=== PATIENT | female | born 1995 | race Caucasian/White ===

== ENCOUNTER 2021-04-06 09:00 | Emergency (ER) | payer SELFPAY ==
[~2021-04-06] VITALS: Ht 165.1 cm; Wt 61.4 kg
[2021-04-06 11:30] VITALS: BP 115/65
== END 2021-04-06 11:30 | disposition home or self-care (01) | DRG 556 ==
LOC: ED 09:00
DX: M79.671 Pain in right foot (principal); W20.8XXA Other cause of strike by thrown, projected or falling object, initial encounter; Y93.89 Activity, other specified; Y92.009 Unspecified place in unspecified non-institutional (private) residence as the place of occurrence of the external cause

== ENCOUNTER 2022-11-28 09:32 | Emergency (ER) | payer OTHER ==
[~2022-11-28] VITALS: Ht 165.1 cm; Wt 63.0 kg
[2022-11-28 11:11] VITALS: BP 115/81
[2022-11-28 11:15] VITALS: BP 111/74
[2022-11-28 11:30] VITALS: BP 101/66
[2022-11-28 11:38] LABS: BASO% 0.3 % (0-3); EOS% 0.4 % (0-8); HEMATOCRIT 41.3 % (37.0-47.0); HEMOGLOBIN 13.7 g/dl (12.0-16.0); IMMATURE GRANULOCYTES 0.4 % (0.0-5.0); LYMPH% 22.3 % (15-41); MEAN CELL VOLUME 92.6 fL CALC (80.0-100.0); MEAN CORPUSCULAR HGB 30.7 pG CALC (26.0-32.0); MEAN CORPUSCULAR HGB CONC 33.2 g/dL CAL (32.0-36.0); MONO% 6.7 % (2-13); NEUT# 6.97 thou/uL (2.00-7.15); NEUT% 69.9 % (42-76); RED BLOOD COUNT 4.46 mill/uL (4.20-5.60); RED CELL DISTRI WIDTH 11.8 % (11.5-15.5)
[2022-11-28 11:39] LABS: URINE BILIRUBIN - DIPSTICK Negative (NEGATIVE); URINE BLOOD DIPSTICK Negative (NEGATIVE); URINE GLUCOSE - DIPSTICK Negative (NEGATIVE); URINE KETONE Negative (NEGATIVE); URINE LEUK ESTERASE Negative (NEGATIVE); URINE NITRITE - DIPSTICK Negative (Negative); URINE PH 5.5 (4.5-8.0); URINE PROTEIN - DIPSTICK Negative (NEG-TRACE); URINE SPECIFIC GRAVITY >=1.030; URINE UROBILINOGEN - DIPSTICK 0.2 E.U./dL (0.2)
[2022-11-28 11:40] LABS: URINE COLOR Yellow
[2022-11-28 11:52] VITALS: BP 111/77
[2022-11-28 11:56] LABS: ALBUMIN 4.4 g/dL (3.2-5.0); ALKALINE PHOSPHATASE 58 u/l (38-126); ANION GAP 13 (6-22 (CALC)); BILIRUBIN, TOTAL 0.8 mg/dL (0.02-1.3); BUN 10 mg/dL (7-17); BUN/CREATININE RATIO 17 (12-20 (CALC)); CARBON DIOXIDE 22 mmol/l (22-30); CHLORIDE 108 mmol/l (95-108); CREATININE 0.6 mg/dL (0.5-1.0); GFR FOR AFR.AMER. > 60 ML/MIN (>=60 (CALC)); GFR OTHER RACES > 60 ML/MIN (>=60 (CALC)); LIPASE 76 u/l (23-300); POTASSIUM 3.9 mmol/l (3.5-5.1); SGOT/AST 27 u/l (14-36); SODIUM 139 mmol/l (137-146); TOTAL PROTEIN 7.6 g/dL (6.3-8.2)
[2022-11-28 12:00] VITALS: BP 106/69
[2022-11-28] MEDS ORDERED: AMOX/K CLAV875 M1 PO (14:33)
[2022-11-28] MEDS ORDERED: PREDNISONE20 MG PO (14:33)
[2022-11-28] MEDS ORDERED: ZOFRAN4 MG/TAB PO (14:33)
[2022-11-28 14:56] VITALS: BP 111/74
== END 2022-11-28 15:01 | disposition home or self-care (01) | DRG 387 ==
LOC: ED 09:32
PROVIDERS: Family Medicine
DX: K51.90 Ulcerative colitis, unspecified, without complications (principal); Z20.822 Contact with and (suspected) exposure to COVID-19
CPT/HCPCS: Q9967

== ENCOUNTER 2023-06-15 08:25 | Emergency (ER) | payer OTHER ==
[~2023-06-15] VITALS: Ht 165.1 cm; Wt 70.3 kg
[2023-06-15] VITALS (7 sets, daily range): BP systolic 87–108; BP diastolic 55–67
[~2023-06-15 08:25] MED LIST: AMOX/K CLAV875 M1 PO; PREDNISONE20 MG PO; ZOFRAN4 MG/TAB PO
[2023-06-15] MEDS ORDERED: SODIUM CHLORIDE 0.9% 1,000 ML IV ONE ×2 (08:50→09:00)
[2023-06-15] MEDS ORDERED: ONDANSETRON HCl 4 MG/2 ML SDV IV ONE ×2 (08:55→09:00)
[2023-06-15 09:07] LABS: BASO% 0.2 % (0-3); EOS% 0.1 % (0-8); HEMATOCRIT 37.9 % (37.0-47.0); HEMOGLOBIN 12.8 g/dl (12.0-16.0); IMMATURE GRANULOCYTES 1.8 % (0.0-5.0); LYMPH% 4.3 % (15-41); MEAN CELL VOLUME 90.2 fL CALC (80.0-100.0); MEAN CORPUSCULAR HGB 30.5 pG CALC (26.0-32.0); MEAN CORPUSCULAR HGB CONC 33.8 g/dL CAL (32.0-36.0); MONO% 3.9 % (2-13); NEUT# 10.68 thou/uL (2.00-7.15); NEUT% 89.7 % (42-76); RED BLOOD COUNT 4.2 mill/uL (4.20-5.60); RED CELL DISTRI WIDTH 12.5 % (11.5-15.5)
[2023-06-15 09:15] LABS: URINE BLOOD DIPSTICK Negative (NEGATIVE); URINE GLUCOSE - DIPSTICK Negative (NEGATIVE); URINE KETONE >=160 mg/dL (NEGATIVE); URINE LEUK ESTERASE Negative (NEGATIVE); URINE NITRITE - DIPSTICK Negative (Negative); URINE PH 8.5 (4.5-8.0); URINE PROTEIN - DIPSTICK 30 mg/dL (NEG-TRACE); URINE SPECIFIC GRAVITY 1.015
[2023-06-15 09:20] LABS: URINE COLOR Yellow; URINE EPITHELIAL CELLS MODERATE EPI/hpf (0-FEW)
[2023-06-15 09:21] LABS: ALBUMIN 3.6 g/dL (3.2-5.0); ALKALINE PHOSPHATASE 84 u/l (38-126); ANION GAP 9 (6-22 (CALC)); BUN 7 mg/dL (7-17); BUN/CREATININE RATIO 16 (12-20 (CALC)); CARBON DIOXIDE 18 mmol/l (22-30); CHLORIDE 110 mmol/l (95-108); CREATININE 0.4 mg/dL (0.5-1.0); GFR FOR AFR.AMER. > 60 ML/MIN (>=60 (CALC)); GFR OTHER RACES > 60 ML/MIN (>=60 (CALC)); POTASSIUM 4.1 mmol/l (3.5-5.1); SGOT/AST 26 u/l (14-36); SODIUM 133 mmol/l (137-146); TOTAL PROTEIN 6.4 g/dL (6.3-8.2)
[2023-06-15 09:38] LABS: BETA-HCG, QUANT(RESULT NUMBER) 4972 mIU/mL
== END 2023-06-15 11:45 | disposition home or self-care (01) | DRG 833 ==
LOC: ED 08:25
PROVIDERS: Family Medicine
DX: O26.892 Other specified pregnancy related conditions, second trimester (principal); R11.2 Nausea with vomiting, unspecified; R19.7 Diarrhea, unspecified; Z3A.27 27 weeks gestation of pregnancy; Z20.822 Contact with and (suspected) exposure to COVID-19